=== PATIENT | female | born 1955 | race Caucasian/White ===

== ENCOUNTER → 2016-04-26 | Outpatient (CLI) | payer OTHER ==
[~2016-04-26] MED LIST: ALBUTEROL2.5 MG/NEB IN; ASPIRIN81 MG PO; COGENTIN GENERIC1 MG PO; COUMADIN 5MG TAB5 MG PO; DOXYCYCLINE HY100 M3 PO; IPRATROPIU0.5 MG/2.5 IN; LOMOTIL 2.5MG.2.5 MG PO; MEDROL 4MG. DOSE4 MG PO; METOPROLOL25 MG PO; NORCO 325 MG-51 TAB PO; PHENERGAN 12.12.5 M1 PO; PHENERGAN 25MG.25 MG PR; PROAIR HFA0.09 MG/AC IH; PROBIOTIC FORMU1 CA2 PO; RANITIDINE HCL150 MG PO; ROBAXIN 500 MG500 MG PO; SPIRIVA18 MCG IH; VIBRAMYCIN 100100 MG PO; ZANTAC 300300 MG PO
[2016-04-26 09:03] LABS: BUN 14 mg/dL (7-18)
[2016-04-26 09:05] LABS: GFR (ESTIMATED) 64 ML/MIN (59-)
== END ==
LOC: LAB 07:41
PROVIDERS: Nurse Practitioner Family
DX: I10 Essential (primary) hypertension (principal); E55.9 Vitamin D deficiency, unspecified; Z13.220 Encounter for screening for lipoid disorders